=== PATIENT | male | born 1965 | race Caucasian/White ===

== ENCOUNTER 2021-06-30 18:35 | Emergency (ER) | payer BC, OTHER ==
[~2021-06-30] VITALS: Ht 175.3 cm; Wt 120.2 kg
[2021-06-30 19:53] LABS: BASOPHILS 0.6 % (0.0-2.0); EOSINOPHILS 1.1 % (0.0-3.0); HEMATOCRIT 43.1 % (42.0-52.0); HEMOGLOBIN 14.7 gm/dL (14.0-18.0); LYMPHOCYTES 16.4 % (24.0-44.0); MCH 31.5 pg (26.0-34.0); MCHC 34.2 g/dL (28.0-37.0); MCV 92.3 fL (80.0-100.0); MONOCYTES 9.8 % (1.0-8.0); PLATELET COUNT 211 thou/uL (150-400); POLYS 72.1 % (36.0-66.0); RBC 4.67 mil/uL (4.50-6.00); RDW 14.5 % (10.5-14.5); WBC 8.3 thou/uL (4.0-11.0)
[2021-06-30 19:58] LABS: ANION GAP 4 mmol/L (7-16); BUN 16 mg/dL (7-18); CALCIUM 9.3 mg/dL (8.5-10.1); CHLORIDE 104 mmol/L (98-107); CO2 31 mmol/L (21-32); CREATININE 1.1 mg/dL (0.7-1.3); GLUCOSE 115 mg/dL (74-106); SODIUM 139 mmol/L (136-145)
[2021-06-30 20:08] LABS: ALBUMIN 4.1 g/dL (3.4-5.0); SGOT 55 U/L (15-37); SGPT 115 U/L (16-63); TOTAL BILIRUBIN 0.3 mg/dL (0.2-1.0); TOTAL PROTEIN 8.3 g/dL (6.4-8.2); TROPONIN-I <0.06 ng/mL (<0.06)
[2021-06-30 22:11] VITALS: BP 160/92
--- NOTE | 2021-07-02 09:23 | EKG ---
[address] [place] [address] ELECTROCARDIOGRAM REPORT Name: ITA AMBRIZ Room #: VANESSA Morejon#: [id number] Admission: 06/30/21 Attend Phys: Discharge: 06/30/21 Date of : 63 Report #: [id number] [facility] ED Test Date: 2021-06-30 Test Time: 21:07:17 Pat Name: ITA AMBRIZ Department: Room: Gender: [employer] Employee: YARED : 1965 Requested By: Tor Harrington Order Number: [id number] MD: Mario Monroe Measurements Intervals [place] Rate: 94 P: -1 PA: 141 QRS: 40 QRSD: 88 T: 51 QT: 345 QTc: 432 Interpretive Statements Sinus rhythm Normal tracing No previous ECG available for comparison Electronically Signed On 07-02-2021 9:23:51 CDT by Mario Monroe [email or web address] <ELECTRONICALLY SIGNED> By: Mario Monroe MD, [facility] 07/02/21 0923 2107 06 Mario Monroe MD, FACC /EPI
== END 2021-06-30 22:14 | disposition home or self-care (01) ==
LOC: ER 18:35
PROVIDERS: Emergency Medicine
DX: I80.8 Phlebitis and thrombophlebitis of other sites (principal); R06.02 Shortness of breath; Z98.890 Other specified postprocedural states

== ENCOUNTER → 2021-07-02 | Outpatient (CLI) | payer OTHER | LOC: CAT 11:59 | PROVIDERS: ATTEND Internal Medicine Cardiovascular Disease | DX: Z13.6 Encounter for screening for cardiovascular disorders (principal); I25.10 Atherosclerotic heart disease of native coronary artery without angina pectoris; E78.00 Pure hypercholesterolemia, unspecified ==

== ENCOUNTER → 2021-08-18 | Outpatient (CLI) | payer BC, OTHER | LOC: SJCVCIMAG 08:53 | PROVIDERS: ATTEND Internal Medicine Cardiovascular Disease | DX: M79.602 Pain in left arm (principal); R60.0 Localized edema; E78.5 Hyperlipidemia, unspecified; G47.33 Obstructive sleep apnea (adult) (pediatric); Z82.49 Family history of ischemic heart disease and other diseases of the circulatory system; Z79.899 Other long term (current) drug therapy; Z72.89 Other problems related to lifestyle; Z87.891 Personal history of nicotine dependence ==

== ENCOUNTER → 2021-09-01 | Outpatient (CLI) | payer BC, OTHER | LOC: SJCVCIMAG 10:30 | PROVIDERS: ATTEND Internal Medicine Cardiovascular Disease | DX: I10 Essential (primary) hypertension (principal); E78.5 Hyperlipidemia, unspecified; I82.90 Acute embolism and thrombosis of unspecified vein ==